=== PATIENT | female | born 1975 | race Caucasian/White ===

== ENCOUNTER 2020-04-22 16:50 | Emergency (ER) | payer OTHER ==
[~2020-04-22] VITALS: Ht 165.1 cm; Wt 68.0 kg
[~2020-04-22 16:50] MED LIST: AZITHROMYCIN250 MG PO; FLONASE2 SPRAY NS; IBUPROFEN600 MG PO; LEXAPRO10 MG PO; NORCO 7.5-3251 EACH PO; PERCOCET 5-3251 EACH PO; SUDAFED 12 HOU120 MG PO; TRAMADOL HCL50 MG PO; ULTRAM50 MG PO; XANAX0.5 MG PO; ZYRTEC10 MG PO
--- OUTSIDE RECORDS SUMMARY | 2020-04-22 16:54 | XMS ---
PreManage Notification: CAIT MEMBRENO Security Lead R[employer] Service Man Events No recent Security Events currently on file CRITERIA MET - PDMP CARE PROVIDERS KAIRA BLEVINS Current PHONE: [phone] AGUS RICHMOND Counselor: Addiction (Substance Use Disorder) Current PHONE: [phone] IDALIA LO Physician [employer] Specialist Current PHONE: Unknown ODILON LOJA Counselor: Mental Health Current PHONE: [phone] Beena has no Care Guidelines for this patient. [facility] VISIT COUNT (12 MO.) [address] [address] [place] TOTAL 6 NOTE: Visits indicate total known visits. ED/UCC VISIT TRACKING (12 MO.) 04/22/2020 16:51 [facility] [place] TYPE: Emergency COMPLAINT: - HURT ELBOW 08/09/2019 20:06 [facility] [place] TYPE: Emergency DIAGNOSES: - Anxiety with SOB - Anxiety disorder, unspecified - Anxiety 08/01/2019 19:49 [facility] [place] TYPE: Emergency DIAGNOSES: - Influenza due to unidentified influenza virus with other respiratory manifestations - Shortness of Breath - Alcohol abuse, uncomplicated - Tobacco use 07/04/2019 12:50 [facility] [place] TYPE: Emergency DIAGNOSES: - Lateral epicondylitis, left elbow - ELBOW AND HAND PAIN - Lateral epicondylitis, right elbow 06/10/2019 11:56 [facility] [place] TYPE: Emergency DIAGNOSES: - Strain of muscle, fascia and tendon of lower back, initial encounter - Back Pain 04[facility]25/2019 16:29 [facility] [place] [facility] DIAGNOSES: - Nasal Congestion - Cough - Gastritis, unspecified, without bleeding - Vomiting, Chills - Nausea with vomiting, unspecified - Sore Throat - Dizziness - Nausea INPATIENT VISIT TRACKING (12 MO.) No inpatient visits to display in this time frame [email or web address]
[2020-04-22] MEDS ORDERED: NORCO 5-325 TA1 EACH PO (19:21)
[2020-04-22] MEDS ORDERED: DICLOFENAC SODI75 MG PO (19:21)
== END 2020-04-22 19:47 | disposition home or self-care (01) ==
LOC: ED 16:50
DX: M77.02 Medial epicondylitis, left elbow (principal); F17.200 Nicotine dependence, unspecified, uncomplicated; Z91.041 Radiographic dye allergy status
CPT/HCPCS: 73080; 99283-25